=== PATIENT | female | born 1995 | race Caucasian/White ===

== ENCOUNTER 2023-08-25 00:10 | Observation (INO) | payer BC ==
[2023-08-25 00:35] LABS: Bilirubin Negative (Negative); Blood, Urine Large (Negative); Glucose, Urine (Dipstick) Negative (Negative); Ketone, Urine Trace mg/dL (Negative); Leukocyte Trace (Negative); Nitrite Positive (Negative); Protein, Urine (Dipstick) 100 mg/dL (Neg-Trace)
[2023-08-25 00:39] LABS: Clarity Cloudy (Clear)
[2023-08-25 00:42] LABS: Bacteria/HPF None Seen HPF (None Seen); CAUTI Indications for Culture Dysuria,urgency,freq; RBC/HPF Greater than 50 HPF (0-3); Squamous Epithelial 0-3 HPF (0-3); WBC/HPF 21-50 HPF (0-3)
[2023-08-25 00:43] LABS: Urine Culture Reflex Yes Yes
[2023-08-25 00:44] LABS: #Basophils 0.1 thou/uL (0.0-0.2); #Eosinphils 0.2 thou/uL (0.0-0.7); #Monocytes 0.5 thou/uL (0.11-0.59); #Neutrophils 4.8 thou/uL (1.40-6.50); %Basophils 0.6 % (0.0-1.0); %Eosinophils 1.9 % (0.0-10.0); %Lymphocytes 38.7 % (21.0-51.0); %Monocytes 5.3 % (0.0-10.0); %Neutrophils 53.3 % (42.0-75.0); Hematocrit 34.3 % (36.0-47.0); Hemoglobin 11.4 g/dL (12.0-16.0); Mean Corpuscular HGB CONC 33.2 g/dL (32.0-36.0); Mean Corpuscular Hemoglobin 29.1 pg (27.0-31.0); Mean Corpuscular Volume 87.5 fl (78.0-98.0); Mean Platelet Volume 10.1 fL (7.4-10.4); Platelet Count 241 10x3/uL (130-400); Red Blood Cell (RBC) Count 3.92 mill/uL (4.20-5.40); White Blood Cell (WBC) Count 8.9 10x3/uL (4.8-10.8)
[2023-08-25 00:53] LABS: BHCG - Serum Negative (NEGATIVE); Pregs Control Background? CLEAR/WHITE (CLR/WHITE); Pregs Control Bar Appear? YES (CONTROL BAR)
[2023-08-25 01:10] LABS: ALT (SGPT) 20 U/L (8-55); AST (SGOT) 19 U/L (5-34); Albumin 4.6 g/dL (3.5-5.0); Alkaline Phosphatase 85 U/L (40-110); Anion Gap 16 mmol/L (10-20); BUN (Urea Nitrogen) 18 mg/dL (7.0-18.7); Bilirubin, Total 0.3 mg/dL (0.2-1.2); Calc. Creatinine Clearance 0 mL/min (70-130); Calcium 10.1 mg/dL (7.8-10.44); Carbon Dioxide 23 mmol/L (22-29); Chloride 105 mmol/L (98-107); Estimated GFR 93; Globulin 2.6 g/dL (2.4-3.5); Glucose 104 mg/dL (70-105); Potassium 3.6 mmol/L (3.5-5.1); Protein, Total 7.2 g/dL (6.0-8.3); Sodium 140 mmol/L (136-145)
[2023-08-25] MEDS ORDERED: Morphine 4 MG/ML VIAL ONE (01:27)
[2023-08-25] MEDS ORDERED: Ondansetron PF 4 MG/2 ML Vial ONE ×2 (01:27→09:32)
[2023-08-25] MEDS ORDERED: Ondansetron ODT 4 MG TAB ONE (02:32)
[2023-08-25] MEDS ORDERED: Piperacillin/Tazobactam 3.375 GM VIAL ONE (05:03)
[2023-08-25] MEDS ORDERED: Ondansetron PF 4 MG/2 ML Vial IVP PRN ×2 (06:15→21:54)
[2023-08-25] MEDS ORDERED: Acetaminophen 325 MG TAB PO PRN (06:15)
[2023-08-25] MEDS ORDERED: Ondansetron ODT 4 MG TAB SL PRN (06:15)
[2023-08-25 06:24] VITALS: BMI 23.4
[2023-08-25] MEDS ORDERED: Iopamidol-370 76% 500 ML MDV (1 ML CHARGE) ONE (08:31)
[2023-08-25] MEDS ORDERED: Morphine 4 MG/ML VIAL SLOW IVP PRN (08:32)
[2023-08-25] MEDS ORDERED: Iopamidol 15 ML ONE (08:40)
[2023-08-25] MEDS ORDERED: SUGAMMADEX SODIUM 200 MG/2 ML VIAL ONE (09:19)
[2023-08-25] MEDS ORDERED: fentaNYL 50 mcg/mL 1 mL Vial ONE ×2 (09:19→10:16)
[2023-08-25] MEDS ORDERED: Famotidine/PF 20 mg/2ml Vial ONE (09:28)
[2023-08-25] MEDS ORDERED: PROPOFOL 200 MG/20 ML VIAL ONE (09:32)
[2023-08-25] MEDS ORDERED: Succinylcholine 200 MG/10 ml SYRINGE FS ONE (09:32)
[2023-08-25] MEDS ORDERED: Rocuronium Bromide 10 MG/ML (10ML VIAL) ONE (09:32)
[2023-08-25] MEDS ORDERED: Dexamethasone 20 MG/5 ML VIAL ONE (09:32)
[2023-08-25] MEDS ORDERED: Metoclopramide HCl 10 MG/2 ML VIAL ONE (09:32)
[2023-08-25] MEDS ORDERED: Lidocaine 1% PF 5 ML VIAL ONE (09:32)
[2023-08-25] MEDS ORDERED: Ketorolac Tromethamine 30 MG/ML VIAL ONE (09:32)
[2023-08-25] MEDS ORDERED: Oxybutynin 5 MG TAB PO PRN (09:54)
[2023-08-25] MEDS ORDERED: HYDROcodone/Acetaminophen 5/325 mg Tablet PO PRN ×2 (09:54)
[2023-08-25] MEDS ORDERED: Mag-Al 1200 mg/1200 mg/30 ML UDCUP PO PRN (09:54)
[2023-08-25] MEDS ORDERED: diphenhydrAMINE 50 MG/ML VIAL IVP PRN (09:54)
[2023-08-25] MEDS ORDERED: Ondansetron HCl/PF 4 MG/2 ML Vial IVP PRN (10:06)
[2023-08-25] MEDS ORDERED: Promethazine HCl 25 MG/ML VIAL IM PRN (10:06)
[2023-08-25] MEDS ORDERED: Meperidine HCl/PF 25 MG/ML VIAL SLOW IVP PRN (10:06)
[2023-08-25] MEDS ORDERED: PACU-Morphine 4MG/ML VIAL SLOW IVP PRN (10:06)
[2023-08-25] MEDS: Sodium Chloride 0.9% 1,000 ML IV SCH ×2 (11:24→18:08)
[2023-08-25] MEDS: Phenazopyridine HCl 100 MG TAB PO SCH ×2 (12:38→18:08)
[2023-08-25] MEDS: Piperacillin/Tazobactam 3.375 GM in Sodium Chloride 0.9% 100 ML IVPB SCH ×2 (14:35→21:25)
[2023-08-25] MEDS ORDERED: FLU VACC QS2023-24(6MOS UP)/PF 60 MCG/0.5 ML SYRINGE IM ONE (15:00)
[2023-08-25] MEDS: Docusate 100 MG CAP PO SCH (21:25)
[2023-08-25] MEDS: Famotidine/PF 20 mg/2ml Vial SLOW IVP SCH (21:25)
[2023-08-25] MEDS ORDERED: Acetaminophen 500 MG TAB PO PRN (21:55)
[2023-08-25] MEDS ORDERED: Ondansetron ODT 4 MG TAB PO PRN (21:55)
[2023-08-25] MEDS ORDERED: Ondansetron PF 4 MG/2 ML Vial IVP SCH (22:00)
[2023-08-25] MEDS ORDERED: Acetaminophen 500 MG TAB PO SCH (22:00)
[2023-08-26 05:21] LABS: #Monocytes 0.7 thou/uL (0.11-0.59); #Neutrophils 10.2 thou/uL (1.40-6.50); %Basophils 0.2 % (0.0-1.0); %Lymphocytes 11.1 % (21.0-51.0); %Monocytes 5.8 % (0.0-10.0); %Neutrophils 82.7 % (42.0-75.0); Hematocrit 33.2 % (36.0-47.0); Hemoglobin 10.6 g/dL (12.0-16.0); Mean Corpuscular HGB CONC 31.9 g/dL (32.0-36.0); Mean Corpuscular Hemoglobin 28.4 pg (27.0-31.0); Mean Platelet Volume 10.6 fL (7.4-10.4); Platelet Count 237 10x3/uL (130-400); RBC Distribution Width 13.4 % (11.5-14.5); Red Blood Cell (RBC) Count 3.73 mill/uL (4.20-5.40); White Blood Cell (WBC) Count 12.3 10x3/uL (4.8-10.8)
[2023-08-26 05:49] LABS: Anion Gap 13 mmol/L (10-20); BUN (Urea Nitrogen) 16 mg/dL (7.0-18.7); Calc. Creatinine Clearance 105 mL/min (70-130); Calcium 8.7 mg/dL (7.8-10.44); Carbon Dioxide 21 mmol/L (22-29); Chloride 108 mmol/L (98-107); Estimated GFR 93; Glucose 94 mg/dL (70-105); Potassium 3.9 mmol/L (3.5-5.1); Sodium 138 mmol/L (136-145)
[2023-08-26] MEDS: Piperacillin/Tazobactam 3.375 GM in Sodium Chloride 0.9% 100 ML IVPB SCH (05:58)
[2023-08-26 08:28] VITALS: BP 107/57; TEMP 98.4
[2023-08-26] MEDS: Phenazopyridine HCl 100 MG TAB PO SCH (09:34)
[2023-08-26] MEDS: Famotidine/PF 20 mg/2ml Vial SLOW IVP SCH (09:35)
[2023-08-26] MEDS: Docusate 100 MG CAP PO SCH (09:35)
== END 2023-08-26 11:58 | disposition home or self-care (01) ==
LOC: ERS 00:10 → SURG B 04:54
PROVIDERS: ADMIT Student in an Organized Health Care Education/Training Program; ATTEND Family Medicine
PROC: 0WHR8YZ Insertion of Other Device into Genitourinary Tract, Via Natural or Artificial Opening Endoscopic (ICD-10-PCS; principal; 2023-08-25)
DX: N13.2 Hydronephrosis with renal and ureteral calculous obstruction (principal); N39.0 Urinary tract infection, site not specified; Z88.1 Allergy status to other antibiotic agents; Z90.710 Acquired absence of both cervix and uterus; Z88.0 Allergy status to penicillin
CPT/HCPCS: 36415; 74177; 74420; 80048; 80053; 81001; 84703; 85025; 87086; 96365; 96366; 96375; 96376; C2617; G0378; J1100; J1885; J2270; J2405; J2543; J2704; J2765; J3010; J3490; J7050; Q0162; Q9967; S0028

== ENCOUNTER 2023-08-29 16:46 | Outpatient (CLI) | payer BC ==
[2023-08-29 17:28] LABS: BHCG - Serum Negative (NEGATIVE); Pregs Control Background? CLEAR/WHITE (CLR/WHITE); Pregs Control Bar Appear? YES (CONTROL BAR)
[2023-08-29 17:30] LABS: PTT 27.3 sec (22.0-33.0); Prothrombin Time 10.4 sec (9.5-12.1)
[2023-08-29 17:32] LABS: Anion Gap 15 mmol/L (10-20); BUN (Urea Nitrogen) 12 mg/dL (7.0-18.7); Calc. Creatinine Clearance 0 mL/min (70-130); Calcium 9.6 mg/dL (7.8-10.44); Carbon Dioxide 23 mmol/L (22-29); Chloride 107 mmol/L (98-107); Estimated GFR 105; Glucose 78 mg/dL (70-105); Potassium 3.8 mmol/L (3.5-5.1); Sodium 141 mmol/L (136-145)
[2023-08-29 17:37] LABS: Hematocrit 33.1 % (34.9-44.5); Hemoglobin 10.7 g/dL (12.0-15.5); Mean Corpuscular HGB CONC 32.3 g/dL (32.0-36.0); Mean Corpuscular Hemoglobin 28.3 pg (27.0-33.0); Mean Corpuscular Volume 87.6 fl (81.6-98.3); Mean Platelet Volume 10.6 fl (7.4-10.4); Platelet Count 237 10x3/uL (150-450); Red Blood Cell (RBC) Count 3.78 10x6/uL (3.90-5.03); White Blood Cell (WBC) Count 6.6 10x3/uL (3.5-10.5)
== END 2023-08-29 16:47 | disposition home or self-care (01) ==
LOC: LABBT 16:46
PROVIDERS: ATTEND Urology
DX: Z01.812 Encounter for preprocedural laboratory examination (principal); N20.2 Calculus of kidney with calculus of ureter
CPT/HCPCS: 80048; 84703; 85027; 85610; 85730

== ENCOUNTER 2023-09-02 08:20 | Day surgery (SDC) | payer BC ==
[2023-08-29 16:49] VITALS: BMI 22.8
[2023-09-02] MEDS ORDERED: fentaNYL PF 100 MCG/2 ML SYRINGE ONE (10:38)
[2023-09-02] MEDS ORDERED: Iopamidol 30 ML ONE (10:39)
[2023-09-02] MEDS ORDERED: LevoFLOXacin 500 mg/D5W 100 ML BAG ONE (10:50)
[2023-09-02] MEDS ORDERED: PROPOFOL 200 MG/20 ML VIAL ONE (11:05)
[2023-09-02] MEDS ORDERED: Rocuronium Bromide 10 MG/ML (10ML VIAL) ONE (11:05)
[2023-09-02] MEDS ORDERED: NEOSTIGMINE 3 MG/3 ML SYR 3 MG/3 ML SYRINGE ONE (11:05)
[2023-09-02] MEDS ORDERED: Ondansetron PF 4 MG/2 ML Vial ONE (11:05)
[2023-09-02] MEDS ORDERED: Dexamethasone 20 MG/5 ML VIAL ONE (11:05)
[2023-09-02] MEDS ORDERED: Glycopyrrolate 0.2 MG/ML 5 ML SYRINGE ONE (11:05)
[2023-09-02] MEDS ORDERED: ePHEDrine Sulfate 50 MG/10 ML VIAL ONE (11:05)
[2023-09-02] MEDS ORDERED: Lidocaine 1% PF 5 ML VIAL ONE (11:05)
[2023-09-02] MEDS ORDERED: Oxybutynin 5 MG TAB ONE (11:57)
[2023-09-02] MEDS ORDERED: fentaNYL 50 mcg/mL 1 mL Vial ONE ×3 (11:57→13:00)
[2023-09-02] MEDS ORDERED: Phenazopyridine HCl 100 MG TAB ONE (11:58)
[2023-09-02] MEDS ORDERED: HYDROcodone/Acetaminophen 5/325 mg Tablet ONE (14:11)
== END 2023-09-02 17:19 | disposition home or self-care (01) ==
LOC: SDC 08:20
PROVIDERS: ATTEND Urology
PROC: 0TC78ZZ Extirpation of Matter from Left Ureter, Via Natural or Artificial Opening Endoscopic (ICD-10-PCS; principal; 2023-09-02)
PROC: 0TC18ZZ Extirpation of Matter from Left Kidney, Via Natural or Artificial Opening Endoscopic (ICD-10-PCS; principal; 2023-09-02)
PROC: 0T778DZ Dilation of Left Ureter with Intraluminal Device, Via Natural or Artificial Opening Endoscopic (ICD-10-PCS; principal; 2023-09-02)
DX: N13.2 Hydronephrosis with renal and ureteral calculous obstruction (principal); K59.01 Slow transit constipation; Z88.1 Allergy status to other antibiotic agents; Z90.710 Acquired absence of both cervix and uterus
CPT/HCPCS: 74018; 74420; C1747; C1769; C2617; J1100; J1956; J2405; J2704; J3010; Q9967

== ENCOUNTER 2024-01-22 07:43 | Outpatient (CLI) | payer BC | END 2024-01-22 07:44 | disposition home or self-care (01) | LOC: ULT 07:43 | PROVIDERS: ATTEND Urology | DX: N20.0 Calculus of kidney (principal); Z98.890 Other specified postprocedural states | CPT/HCPCS: 76770 ==